=== PATIENT | female | born 1990 | race Caucasian/White ===

== ENCOUNTER 2016-10-18 03:40 | Emergency (ER) | payer MEDICAID ==
--- NOTE | 2016-10-18 04:06 | ED Physician Chart ---
Chief Complaint/HPI - Patient Information Date Seen:: 10/18/16 Time Seen:: 03:50 Chief Complaint:: right flank pain History of Present Illness:: patient developed right flank pain two hours ago. Vomited 5 times. No diarrhea. Pain radiates from right flank to suprapubic area. Has sensation for frequent urination but unable to urinate. LMP current. Allergies:: Allergies Allergy/AdvReac Type Severity Reaction Status Date / Time No Known Allergies Allergy Verified 02/26/16 20:59 Historian:: Patient Review:: Nurse's Note Reviewed Review of Systems - Review of Systems General/Constitutional: No fever, No chills Skin: No skin lesions Head: No headache Eyes: No loss of vision ENT: No earache Neck: No neck pain Cardio Vascular: No chest pain, No palpitations Pulmonary: No SOB GI: Nausea, Vomiting G/U: Frequency Musculoskeletal: Back pain Psychiatric: No prior psych history Hematopoietic: No bruising Allergic/Immuno: No urticaria Neurological: No syncope, No focal symptoms Past Medical History - Past Medical History Past Medical History: No significant medical hx Family History: Diabetes Melitus Social History: Non Smoker, No Alcohol, Homeless Surgical History: Psychiatricy History: None Medication: None Family Medical History - Family Member Father Ethnicity: Hx Family Diabetes: Yes (newly dx) Physical Exam - Physical Examination General/Constitutional: Well-developed, well-nourished, Alert Head: Atraumatic Eyes: Lids, conjuctiva normal, PERRL Skin: Nl inspection, No rash, No skin lesions, No ecchymosis ENMT: External ears, nose nl, TM canals nl Neck: No nuchal rigidity Respiratory: Nl effort/Exclusion, Clear to Auscultation, No Wheeze/Rhonchi/Rales Cardio Vascular: RRR, No murmur, gallop, rubs, NL S1 S2 GI: No tenderness/rebounding/guarding, No organomegaly, No hernia, Normal BS's, Nondistended, No mass/bruits, No McBurney tenderness Extremities: Normal digits & nails Neuro/Psych: No focal deficits Misc: Normal back ED Septic Shock - . Is Septic Shock (SBP<90, OR Lactate>4 mmol\L) present?: No ED Discharge Plan - Patient Disposition Admit/Discharge/Transfer: PT DISCHARGED HOME Condition at Disposition: Improved Instructions: Kidney Stones, [id number] Additional Instructions: FOLLOW UP WITH YOUR DOCTOR IN 1-2 DAYS AND TO COME BACK TO ER IF SYMPTOMS WORSEN
[2016-10-18 06:01] LABS: % BASOPHILS 0.2 % (0.0-2.0); % EOSINOPHILS 1.6 % (0.0-5.0); % LYMPHOCYTES 16.6 % (20.0-50.0); % MONOCYTES 6.2 % (2.0-10.0); % NEUTROPHILS 75.4 % (40.0-80.0); HEMOGLOBIN 11.2 gm/dL (11.7-15.5); MEAN CELL VOLUME 82.9 fl (81-100); MEAN CORPUSCULAR HEMOGLOBIN 28.1 pg (27.0-31.0); MEAN CORPUSCULAR HGB CONC 33.9 pg (28.0-36.0); MEAN PLATELET VOLUME 8.1 fl; NEUTROPHILE ABSOLUTE 5.3 Th/cmm (1.8-8.0); PLATELET COUNT 230 Th/cmm (150-400); RED BLOOD COUNT 3.98 Mil/cmm (3.80-5.10); RED CELL DISTRIBUTION WIDTH 14.6 % (11.5-20.0); WHITE BLOOD COUNT 6.9 Th/cmm (4.8-10.8)
[2016-10-18 06:24] LABS: ANION GAP 6.5 (7.0-16.0); BUN - UREA NITROGEN 10 mg/dL (7-25); BUN/CREATININE RATIO 14.3; CALCIUM SERUM 9.1 mg/dL (8.6-10.3); CARBON DIOXIDE 29.3 mEq/L (21.0-31.0); CHLORIDE 107 mEq/L (98-107); CREATININE - SERUM 0.7 mg/dL (0.6-1.2); GLUCOSE 109 mg/dL (70-105); POTASSIUM SERUM 3.8 mEq/L (3.5-5.1); SODIUM SERUM 139 mEq/L (136-145)
[2016-10-18 06:31] LABS: URINE BILIRUBIN SMALL (NEGATIVE); URINE BLOOD MODERATE (NEGATIVE); URINE COLOR YELLOW; URINE GLUCOSE (UA) NEGATIVE (NEGATIVE); URINE KETONE TRACE mg/dL (NEGATIVE); URINE PH 6.5; URINE PROTEIN 30 mg/dL (NEGATIVE); URINE UROBILINOGEN 0.2 E.U./dL (0.2 - 1.0)
[2016-10-18 06:34] LABS: URINE EPITHELIAL CELLS FEW /lpf (FEW)
[2016-10-18 06:35] LABS: URINE BACTERIA FEW /hpf (NONE SEEN)
--- NOTE | 2016-10-18 10:50 | Diagnostic Imaging Report ---
Renal ultrasound HISTORY: Right flank pain. Right lower quadrant pain COMPARISON: None Technique: Sonography of the kidneys and urinary bladder was performed in multiple planes. FINDINGS: The right kidney measures 10.6 x 5.3 cm demonstrating mild to moderate right hydronephrosis. No evidence of focal lesions. The left kidney measures 11.6 x 4.7 cm. No evidence of focal lesions or hydronephrosis. The urinary bladder is underdistended limiting its evaluation. IMPRESSION: [id number] right-sided hydronephrosis. This may be due to a distal right ureteral stone. Recommend clinical correlation and possibly further assessment with CT exam. Note, there is clinical concern for appendicitis CT examination is also recommended for further assessment.
== END 2016-10-18 07:45 | disposition home or self-care (01) ==
LOC: ER 03:40
DX: R10.9 Unspecified abdominal pain (principal); R11.10 Vomiting, unspecified; Z59.0 Homelessness
CPT/HCPCS: 36415-UA; 76770-TC; 80048-TC; 81001-TC; 81025-TC; 85025-TC; J1885

== ENCOUNTER 2016-11-27 06:22 | Emergency (ER) | payer MEDICAID ==
[2016-11-27] MEDS ORDERED: Sodium Chloride 0.9% 1,000 ML IV ONE (07:20)
--- NOTE | 2016-11-27 07:20 | ED Physician Chart ---
Chief Complaint/HPI - Patient Information Date Seen:: 11/27/16 Time Seen:: 07:15 Chief Complaint:: rt flank pain History of Present Illness:: onset this am w rt flank pain pressure/severe w rad to rt low ant abd. pos urinary hesitancy. ?dysuria. no vag dc. denies risk of gravid bc had a tubal ligation in past. pt had same sx and was here last month. abd us was negative but there was suspicion of a missed kidney stone...per pt. no hx of physical labor or injury. no fver. pos n/v x 6 today of food/bile. no diarrhea or constipation. Allergies:: Allergies Allergy/AdvReac Type Severity Reaction Status Date / Time No Known Allergies Allergy Verified 11/27/16 06:52 Vitals:: Vital Signs - 8 hr 11/27/16 06:25 Temp 97.6 F HR 85 RR 20 BP 133/84 O2 Sat % 100 Historian:: Patient Review of Systems - Review of Systems General/Constitutional: No fever, No chills, No weight loss, No weakness, No diaphoresis, No edema, No loss of appetite Skin: No skin lesions, No rash, No bruising Head: No headache, No light-headedness Eyes: No loss of vision, No pain, No diplopia ENT: No earache, No nasal drainage, No sore throat, No tinnitus Neck: No neck pain, No swelling, No thyromegaly, No stiffness, No mass noted Cardio Vascular: No chest pain, No palpitations, No PND, No orthopnea, No edema Pulmonary: No SOB, No cough, No sputum, No wheezing GI: Nausea, Vomiting, No diarrhea, Pain, No melena, No hematochezia, No constipation, No hematemesis G/U: No dysuria, No frequency, No hematuria Musculoskeletal: No bone or joint pain, Back pain, No muscle pain Endocrine: No polyuria, No polydipsia Psychiatric: No prior psych history, No depression, No anxiety, No suicidal ideation Hematopoietic: No bruising, No lymphadenopathy Allergic/Immuno: No urticaria, No angioedema Neurological: No syncope, No focal symptoms, No weakness, No paresthesia, No headache, No seizure, No dizziness, No confusion, No vertigo Past Medical History - Past Medical History Past Medical History: No significant medical hx Social History: Non Smoker, No Alcohol, No Drug Use Medication: None Family Medical History - Family Member Father History Unknown: Yes Ethnicity: Hx Family Diabetes: Yes (newly dx) Physical Exam - Physical Examination General/Constitutional: Awake, Well-developed, well-nourished, Alert, No distress, GCS 15, Non-toxic appearing, Ambulatory Other Gen/Cons comments:: mod obese. pos nausea. good color. no pallor. wn/wh. Head: Atraumatic Eyes: Lids, conjuctiva normal, PERRL, EOMI Skin: Nl inspection, No rash, No skin lesions, No ecchymosis, Well hydrated, No lymphadenopathy ENMT: External ears, nose nl, Nasal exam nl, Lips, teeth, gums nl Neck: Nontender, Full ROM w/o pain, No JVD, No nuchal rigidity, No bruit, No mass, No stridor Respiratory: Nl effort/Exclusion, Clear to Auscultation, No Wheeze/Rhonchi/Rales Cardio Vascular: RRR, No murmur, gallop, rubs, NL S1 S2 GI: No tenderness/rebounding/guarding, No organomegaly, No hernia, Normal BS's, Nondistended, No mass/bruits, No McBurney tenderness : No CVA tenderness Extremities: No tenderness or effusion, Full ROM, normal strength in all extremities, No edema, Normal digits & nails Neuro/Psych: Alert/oriented, DTR's symmetric, Normal sensory exam, Normal motor strength, Judgement/insight normal, Mood normal, Normal gait, No focal deficits Misc: normal gait, Normal back, No paraspinal tenderness Labs/Radiology/EKG Results - Lab Results Results: Laboratory Tests 11/27/16 11/27/16 11/27/16 07:31 07:31 10:00 WBC 7.5 RBC 3.99 Hgb 11.0 L Hct 33.0 L MCV 82.7 MCH 27.6 MCHC Differential 33.4 RDW 14.6 Plt Count 254 MPV 7.9 Neutrophils % 69.1 Lymphocytes % 19.2 L Monocytes % 7.9 Eosinophils % 3.2 Basophils % 0.6 Sodium 137 Potassium 3.7 Chloride 108 H Carbon Dioxide 25.4 Anion Gap 7.3 BUN 8 Creatinine 0.7 Est GFR ( Amer) > 60.0 Est GFR (Non-Af Amer) > 60.0 BUN/Creatinine Ratio 11.4 Glucose 121 H Calcium 9.0 Total Bilirubin 0.4 AST 14 ALT 12 Alkaline Phosphatase 64 Total Protein 6.6 Albumin 3.9 Globulin 2.7 Albumin/Globulin Ratio 1.4 Lipase 21 Urine Source CLEAN C Urine Color YELLOW Urine Clarity CLEAR Urine pH 7.0 Ur Specific [place] 1.015 Urine Protein TRACE Urine Glucose (UA) NEGATIVE Urine Ketones TRACE Urine Blood MODERATE H Urine Nitrate NEGATIVE Urine Bilirubin NEGATIVE Urine Urobilinogen 0.2 Ur Leukocyte Esterase TRACE H Urine RBC 10-25 H Urine WBC 2-5 Ur Epithelial Cells FEW Urine Bacteria FEW Urine Test 11/27/16 10:00 WBC RBC Hgb Hct MCV MCH MCHC Differential RDW Plt Count MPV Neutrophils % Lymphocytes % Monocytes % Eosinophils % Basophils % Sodium Potassium Chloride Carbon Dioxide Anion Gap BUN Creatinine Est GFR ( Amer) Est GFR (Non-Af Amer) BUN/Creatinine Ratio Glucose Calcium Total Bilirubin AST ALT Alkaline Phosphatase Total Protein Albumin Globulin Albumin/Globulin Ratio Lipase Urine Source Urine Color Urine Clarity Urine pH Ur Specific [place] Urine Protein Urine Glucose (UA) Urine Ketones Urine Blood Urine Nitrate Urine Bilirubin Urine Urobilinogen Ur Leukocyte Esterase Urine RBC Urine WBC Ur Epithelial Cells Urine Bacteria Urine Test NEGATIVE - Radiology Results Results: us abd nrml gb. appy not seen. ?mild hydro on rt ...this could be a extra-renal -pelvis collecting system and not hydro per tech lynn 2nd look...r could represent a recent passed ks. no inflamation of organ . no intraabd-pelvis inflammation us pelvis nrml fem organs. wnl. ct abd/p- 6mm ureterolity near rt uvj. mod hydro. ED Septic Shock - . Is Septic Shock (SBP<90, OR Lactate>4 mmol\L) present?: No - <6hrs of presentation: Vital Signs: Vital Signs - 8 hr 11/27/16 06:25 Temp 97.6 F HR 85 RR 20 BP 133/84 O2 Sat % 100 Reassessment (Disposition) - Reassessment Reassessment:: 9;50 pt doing well. feels better s/p pain med. us ok/inconclusive. ua pending. will check ct abd/p as we have not identified any cause for last time or this w same tests. ua and u-hcg pending Reassessment Condition:: Improved - Diagnosis Diagnosis:: 6mm ureterolith at rt distal ureter renal colic - Aftercare/Follow up Instructions Aftercare/Follow-Up Instructions:: Counseled pt regarding lab results/diagnosis & need follow up Notes:: pt counselled about size of stone and may need urology to help it get out. we do not have a urology dr at this facility. have dw pt could go to other hosp if pain is intolerable or she is dehydrated. use norco for pain (rx 5s , no 15 ) she seems to be tolerating po intake and doing ok. advise she see her pmd today or tmrw and get urology referral [facility]. - Patient Disposition Discharge/Transfer:: Home Condition at Disposition:: Improved
[2016-11-27 07:38] LABS: % BASOPHILS 0.6 % (0.0-2.0); % EOSINOPHILS 3.2 % (0.0-5.0); % LYMPHOCYTES 19.2 % (20.0-50.0); % MONOCYTES 7.9 % (2.0-10.0); % NEUTROPHILS 69.1 % (40.0-80.0); MEAN CELL VOLUME 82.7 fl (81-100); MEAN CORPUSCULAR HEMOGLOBIN 27.6 pg (27.0-31.0); MEAN CORPUSCULAR HGB CONC 33.4 pg (28.0-36.0); MEAN PLATELET VOLUME 7.9 fl; NEUTROPHILE ABSOLUTE 5.3 Th/cmm (1.8-8.0); PLATELET COUNT 254 Th/cmm (150-400); RED BLOOD COUNT 3.99 Mil/cmm (3.80-5.10); RED CELL DISTRIBUTION WIDTH 14.6 % (11.5-20.0); WHITE BLOOD COUNT 7.5 Th/cmm (4.8-10.8)
[2016-11-27 08:04] LABS: ALB/GLOB RATIO 1.4 (1.0-1.8); ALKALINE PHOSPHATASE 64 U/L (34-104); ANION GAP 7.3 (7.0-16.0); BILIRUBIN,TOTAL 0.4 mg/dL (0.3-1.0); BUN - UREA NITROGEN 8 mg/dL (7-25); BUN/CREATININE RATIO 11.4; CARBON DIOXIDE 25.4 mEq/L (21.0-31.0); CHLORIDE 108 mEq/L (98-107); CREATININE - SERUM 0.7 mg/dL (0.6-1.2); GLUCOSE 121 mg/dL (70-105); LIPASE 21 U/L (11-82); POTASSIUM SERUM 3.7 mEq/L (3.5-5.1); SGOT 14 U/L (13-39); SGPT/ALT 12 U/L (7-52); SODIUM SERUM 137 mEq/L (136-145)
[2016-11-27 10:19] LABS: URINE BILIRUBIN NEGATIVE (NEGATIVE); URINE COLOR YELLOW; URINE GLUCOSE (UA) NEGATIVE (NEGATIVE)
[2016-11-27 10:20] LABS: URINE BLOOD MODERATE (NEGATIVE); URINE KETONE TRACE mg/dL (NEGATIVE); URINE PROTEIN TRACE mg/dL (NEGATIVE); URINE UROBILINOGEN 0.2 E.U./dL (0.2 - 1.0)
[2016-11-27 10:25] LABS: URINE BACTERIA FEW /hpf (NONE SEEN); URINE EPITHELIAL CELLS FEW /lpf (FEW)
--- NOTE | 2016-11-27 10:39 | Diagnostic Imaging Report ---
Pelvic ultrasound HISTORY: Pain Transvaginal sonographic technique was utilized. There is a normal uterine size (9.6 x 4.5 x 6.0 cm). No focal myometrial lesions are seen. The endometrium appears normal (3.1 mm thickness). The right ovary measures 3.4 x 2.3 x 2.7 cm. Subcentimeter cysts are seen. The left ovary measures 3.4 x 2.4 x 2.1 cm. Cyst less than 1.0 cm are seen. No free fluid in the pelvis. IMPRESSION: 1. Bilateral ovarian cystic changes
--- NOTE | 2016-11-27 10:45 | Diagnostic Imaging Report ---
CT scan abdomen and pelvis without intravenous contrast HISTORY: Pain Total DLP equals 690 CTDI equals 14.3 Axial sections were obtained from the xiphoid process down to the is. The liver exhibits a normal size and contour. No focal lesions. The spleen appears normal. No abnormalities are seen in the region of the pancreas. There is a moderate degree of dilatation of the right renal collecting system and generalized dilatation of the right ureter. The findings are associated with an approximate 6 mm calculus in the distal portion of the right ureter near the ureterovesical junction. Several punctate nonobstructing calculi noted in the medullary region of the left kidney. Remainder of the pelvis demonstrates preservation of normal fat planes. No abnormal soft tissue masses or abnormal fluid collections. Several diverticula noted along the sigmoid colon. IMPRESSION: 1. Moderate right-sided hydronephrosis with dilatation of the right ureter related to an approximate 6 mm calculus in the distal portion of the ureter near the ureterovesical junction. 2. Several punctate nonobstructing left renal calculi 3. Mild diverticulosis
--- NOTE | 2016-11-27 10:58 | Diagnostic Imaging Report ---
Abdominal ultrasound HISTORY: Pain The exam of the liver demonstrates an increase in parenchymal echogenicity. The findings may be associated with fatty infiltration and should be correlated with liver function tests. No focal lesions. The gallbladder appears normal. No calculi are seen. No biliary dilatation. There is incomplete visualization of the pancreas due to bowel gas. Kidneys appear normal bilaterally. No other definite retroperitoneal or intra-abdominal abnormalities. IMPRESSION: 1. Somewhat limited exam due to patient's size and body habitus 2. Hepatic parenchymal changes that may be associated with fatty infiltration and should be correlated with liver function tests.
== END 2016-11-27 13:00 | disposition home or self-care (01) ==
LOC: ER 06:22
DX: N20.2 Calculus of kidney with calculus of ureter (principal)
CPT/HCPCS: 99285; 96361; 96374; 96375; 76700; 76856; 74176; 36415; 85025; 81001; 81025; 83690; 80053; J2405; J2270; J7030